=== PATIENT | female | born 1975 | race Caucasian/White ===

== ENCOUNTER → 2023-08-16 | Outpatient (CLI) | payer OTHER ==
--- NOTE | 2023-08-16 13:56 | P.SLEEP ---
History of Present Illness H&P Date: 08/16/23 This is a very pleasant 47-year-old female patient is coming in for sleep apnea evaluation. The patient has issues with chronic A. fib, paroxysmal, and in same time she has typical features of obstructive sleep apnea. The patient has loud snoring, witnessed apneas, sleep fragmentation, excessive fatigue and sleepiness during the day and she wakes up choking and gasping for air. She grinds her teeth, and she described her sleep to be quite restless. She wakes up tired and chest trouble paying attention and she falls asleep during the day easily. She has pounds with memory and concentration. She goes to bed at around 8 PM and she wakes up at 8 AM in the morning and despite spending more than 11 or 12 hours at bed, the patient feels somnolent and sleepy. A Herbster score is at 21. She is coming in for sleep apnea evaluation. No recent weight gain. However, she has gained weight over the past 5 years in the order of 30 pounds. She wakes up at least 4-5 times the middle of the night or choking and gasping. No sleep paralysis. No hallucinations. No cataplexy. She has had difficulties with her driving because of feeling drowsy and sleepy. She has not been involved in a motor vehicle accident. No history of coronary artery disease. Review of Systems Constitutional: Reports daytime sleepiness, Reports fatigue, Reports weight gain Eyes: denies as per HPI, denies blurred vision, denies bulging eye, denies d ecreased vision, denies diplopia, denies discharge, denies dry eye, denies irritation, denies itching, denies pain, denies photophobia, denies loss of peripheral vision, denies loss of vision, denies tunnel vision/blind spots Ears: deny: decreased hearing, ear discharge, earache, tinnitus Ears, nose, mouth and throat: Reports as per HPI Breasts: absent: as per HPI, change in shape, gynecomastia, masses, nipple discharge, pain, skin changes, swelling Cardiovascular: Reports as per HPI Respiratory: Reports snoring Gastrointestinal: Reports as per HPI Genitourinary: Reports as per HPI Menstruation: Reports as per HPI Musculoskeletal: Reports as per HPI Musculoskeletal: absent: ankle pain, ankle stiffness, ankle swelling, as per HPI, elbow pain, elbow stiffness, elbow swelling, foot pain, foot stiffness, foot swelling, hand pain, hand stiffness, hand swelling, hip pain, hip stiffness, hip swelling, knee pain, knee stiffness, knee swelling, shoulder pain, shoulder stiffness, shoulder swelling, wrist pain, wrist stiffness, wrist swelling Integumentary: Reports as per HPI Neurological: Reports as per HPI Psychiatric: Reports as per HPI Endocrine: Reports as per HPI, Reports fatigue Hematologic/Lymphatic: Reports as per HPI Allergic/Immunologic: Reports as per HPI Past Medical History Past Medical History: Atrial Fibrillation Additional Past Medical History / Comment(s): History of colitis, paroxysmal atrial fibrillation, acid reflux, constipation, history of diverticulosis, chronic anxiety Past Surgical History: Appendectomy, Cholecystectomy, Hernia Repair Additional Past Surgical History / Comment(s): Colonoscopy and polyp removal, bladder sling surgery Medications and Allergies Home Medications and Allergies Comment(s): ALLERGIES are to codeine Outpatient medication includes Xarelto 20 mg by mouth daily, she is currently completing a course of antibiotics with Flagyl 500 mg 3 times a day for symptoms of colitis, metoprolol 25 mg twice a day, Cymbalta 60 mg by mouth daily, she also takes a PPI for acid reflux. Physical Exam BP is 100/67, pulse is 88, respirations 18, temperature 98.3, pulse ox is 95% on room air oxygen, Herbster score is at 21, size of the neck is 18-3/4 of an inch, BMI 33.6 Gen. appearance the patient is calm and comfortable, not acute distress. Head exam was generally normal. There was no scleral icterus or corneal arcus. Mucous membranes were moist. Neck was supple and without jugular venous distension, thyromegaly, or carotid bruits. Carotids were easily palpable bilaterally. There was no adenopathy. The patient is a Mallampati class I. No significant crowding of the posterior pharynx. She has micrognathia and a thick neck. Lungs were clear to auscultation and percussion, and with normal diaphragmatic excursion. No wheezes or rales were noted. Cardiac exam revealed the PMI to be normally situated and sized. The rhythm was regular and no extrasystoles were noted during several minutes of auscultation. The first and second heart sounds were normal and physiologic splitting of the second heart sound was noted. There were no murmurs, rubs, clicks, or gallops. Abdominal exam revealed normal bowel sounds. The abdomen was soft, non-tender, and without masses, organomegaly, or appreciable enlargement of the abdominal aorta. Examination of the extremities revealed easily palpable radial, femoral and pedal pulses. There was no cyanosis, clubbing or edema. Examination of the skin revealed no evidence of significant rashes, suspicious appearing nevi or other concerning lesions. Neurologically, the patient is awake and alert and the patient does not have any focal neurological deficit. Cranial nerves are essentially intact. Assessment and Plan Plan: Chronic hypersomnia with an Herbster score of 21. High clinical suspicion for obstructive sleep apnea based above-mentioned symptoms of snoring, witnessed apneas and sleep fragmentation. Patient has micrognathia. Nevertheless, the patient is a Mallampati class I. Obesity with a BMI 33.6 Loud snoring Paroxysmal A. fib, current rhythm is sinus Chronic fatigue and sleepiness Chronic anxiety History of diverticulitis, currently being treated. The patient has diverticulosis also. Acid reflux Chronic anxiety Plan Proceed with the polysomnography Encourage weight loss Avoid driving especially when feeling drowsy or sleepy to avoid any form of motor vehicle accident can be potentially life-threatening Maintain good sleep hygiene measures No substance abuse We'll continue to follow Current cardiac rhythm is sinus Sleep Note - Sleep Note Sleep Note: Temperature: Pulse Rate: Respiratory Rate: Blood Pressure: SpO2: Height: Weight: BMI: Neck Circumference:
== END ==
LOC: 3 N SLEEP 13:09
PROVIDERS: ATTEND Internal Medicine Critical Care Medicine
DX: G47.10 Hypersomnia, unspecified (principal); R06.83 Snoring; M26.09 Other specified anomalies of jaw size; E66.9 Obesity, unspecified; I48.0 Paroxysmal atrial fibrillation; F41.9 Anxiety disorder, unspecified; K21.9 Gastro-esophageal reflux disease without esophagitis; K57.90 Diverticulosis of intestine, part unspecified, without perforation or abscess without bleeding; R53.82 Chronic fatigue, unspecified; Z87.19 Personal history of other diseases of the digestive system; Z68.33 Body mass index [BMI] 33.0-33.9, adult; Z88.5 Allergy status to narcotic agent; Z79.01 Long term (current) use of anticoagulants
CPT/HCPCS: 99202

== ENCOUNTER 2023-09-18 19:16 | Outpatient (CLI) | payer OTHER ==
--- NOTE | 2023-09-28 04:56 | SLS ---
SLEEP STUDY STUDY PERFORMED: Polysomnography report. HISTORY OF PRESENT ILLNESS: This is a 47-year-old female patient with chronic hypersomnia, obesity, loud snoring, chronic fatigue and sleepiness, and [place] score of 21. She does have micrognathia, Mallampati class 4 and she carries a body mass index of 33.6. She has history of paroxysmal atrial fibrillation. Weight is 196, height is 5 feet 4 inches, BMI is 33.6. TECHNICAL DESCRIPTION: The sleep evaluation of the patient consisted of clinical polysomnography, nocturnal respiratory battery, left and right anterior tibialis surface electromyography. The standard montage for the clinical polysomnography included the EEG, EOG, EMG, and EKG. Respiratory battery included measurements of nasal/buccal airflow, thoracic, and/or abdominal effort and intercostal surface EMG. Nocturnal oxyhemoglobin saturations were obtained by finger oximetry. Digital video and audio monitoring were done throughout the entire night to check or parasomnias. RESULTS: SLEEP ARCHITECTURE: The total recording duration was 472 minutes. Total sleep time was 435 minutes. The latency to sleep onset was 18.5 minutes. Latency to REM sleep was 305.5 minutes. The sleep architecture was characterized by 39.9% stage I, 54.6% stage II, 0% stage III, and 5.5% REM sleep. The wake after sleep onset time was 17.5 minutes. The total arousal index was 67.4. RESPIRATORY ANALYSIS: The patient had a total of 692 obstructive events of which 96 were obstructive apneas, 5 were mixed apneas, 591 were obstructive hypopneas, and the patient had an AHI of 93.2. No central apneas were noted. At the same time, the patient encountered significant nocturnal oxygen desaturation that was worse during REM sleep. The patient had a baseline pulse ox of 94% while awake. Her lowest pulse ox during REM sleep at 72% and the patient spent approximately 58 minutes of sleep time at a pulse ox of below 89%. SLEEP CONTINUITY SUMMARY: The patient had a total of 489 arousals with an index of 67.4. Respiratory arousal index was 48.1. Periodic limb movements are none. CARDIAC SUMMARY: Average heart rate was 73, minimum heart rate was 65, maximum heart rate was 85. IMPRESSION: 1. Severe symptomatic obstructive sleep apnea with an AHI of 93.2. 2. Nocturnal oxygen desaturation secondary to obstructive sleep apnea with a minimum pulse ox of 72%. 3. Abnormal sleep architecture with over representation of stage 1 and stage 2 sleep and diminished delta wave and REM. 4. Sleep fragmentation with a total arousal index ray of at 67.4. 5. Chronic hypersomnia with an [place] score of 21. 6. Obesity with a BMI of 33.6. 7. History of paroxysmal atrial fibrillation. 8. Chronic anxiety. 9. Chronic fatigue. 10.Acid reflux and history of diverticulosis. PLAN: Proceed with an in-lab CPAP titration regarding severe symptomatic obstructive sleep apnea. MMODL / IJN: [id number] /
== END 2023-09-19 05:30 | disposition home or self-care (01) ==
LOC: 3 N SLEEP 19:16
PROVIDERS: ATTEND Internal Medicine Critical Care Medicine
DX: G47.33 Obstructive sleep apnea (adult) (pediatric) (principal); G47.36 Sleep related hypoventilation in conditions classified elsewhere; G47.8 Other sleep disorders; G47.52 REM sleep behavior disorder; E66.9 Obesity, unspecified; I48.0 Paroxysmal atrial fibrillation; F41.9 Anxiety disorder, unspecified; R53.82 Chronic fatigue, unspecified; K21.9 Gastro-esophageal reflux disease without esophagitis; Z87.19 Personal history of other diseases of the digestive system; Z68.33 Body mass index [BMI] 33.0-33.9, adult
CPT/HCPCS: 95810

== ENCOUNTER 2023-10-05 19:17 | Outpatient (CLI) | payer OTHER ==
--- NOTE | 2023-10-19 02:01 | SLS ---
SLEEP STUDY This is a CPAP titration report. HISTORY OF PRESENT ILLNESS: A 47-year-old female patient with chronic hypersomnia with an [place] score of 21. The patient underwent a screening polysomnography and she was found to have severe CATIE with an AHI of 93.2 with abnormal sleep architecture, significant nocturnal oxygen desaturation, and sleep fragmentation. Based on that, she is coming in for a CPAP titration study. PERTINENT PHYSICAL FINDINGS: Height is 5 feet 4 inches, weight is 196 with a BMI of 33.6. TECHNICAL DESCRIPTION: The sleep evaluation of the patient consisted of clinical polysomnography, nocturnal respiratory battery, left and right anterior tibialis surface electromyography. The standard montage for the clinical polysomnography included the EEG, EOG, EMG, and EKG. Respiratory battery included measurements of nasal/buccal airflow, thoracic, and/or abdominal effort and intercostal surface EMG. Nocturnal oxyhemoglobin saturations were obtained by finger oximetry. Digital video and audio monitoring were done throughout the entire night to check or parasomnias. Step-navas titration with positive airway pressure was utilized during the study to control the respiratory events. SLEEP ARCHITECTURE: The total recording time was 432 minutes. The total sleep time was 364.0 minutes and the wake after sleep onset time was 48.5 minutes. Overall sleep efficiency was 84.3%. Latency to sleep onset was 19.5 minutes. Latency to REM sleep was 90 minutes and the sleep architecture was characterized by 7% stage I, 63.6% stage II, 3.7% stage III, and 25.7% REM sleep. SLEEP CONTINUITY SUMMARY: The patient had a total of 32 arousals with an index of 5.3. The respiratory arousal index was 0.3. Periodic limb movement activity were none. CARDIAC SUMMARY: Average heart rate was 68, minimum heart rate was 63, and maximum heart rate was 73. CPAP TITRATION STUDY: The patient was started on CPAP therapy initially at a pressure of 5 cm of water and pressure was gradually increased by increments of 1 cm to reach a maximum pressure of 16 cm of water. Careful review of CPAP titration was done taking into account the patient's sleep stage and body position. Note that the patient was sleeping on the right side throughout the titration and she did encounter REM and non-REM sleep. There was obvious improvement in the obstructive respiratory events at various CPAP pressures, especially at pressures of 10 and above. The maximum pressure utilized was 16 cm of water. No significant nocturnal oxygen desaturation encountered during the titration and oxygenation improved. No emergence of any central apnea events. ASSESSMENT: 1. Severe symptomatic obstructive sleep apnea with an AHI of 93.2. The patient underwent a successful CPAP titration. 2. Chronic hypersomnia with an [place] score of 21. 3. Nocturnal oxygen desaturation, improved with CPAP therapy. 4. Obesity with a BMI of 33. 5. Paroxysmal atrial fibrillation. 6. Chronic fatigue. 7. Chronic anxiety. 8. History of diverticulosis/acid reflux. PLAN: Initiate CPAP therapy. The patient will be offered an APAP machine and this will be set at a minimum pressure of 10 and a maximum pressure of 16. The patient is going to be offered an AirFit F20 medium size fullface mask. Will be encouraged to lose weight. We will maintain good sleep hygiene measures. We will regulate sleep schedule. The patient will see me back in the office in 30 to 90 days for a compliancy check and we will make further recommendations. I anticipate improvement in her symptoms of chronic hypersomnia while being on CPAP therapy. We will continue to follow. MMODL / IJN: [id number] /
== END 2023-10-06 05:45 | disposition home or self-care (01) ==
LOC: 3 N SLEEP 19:17
PROVIDERS: ATTEND Internal Medicine Critical Care Medicine
DX: G47.33 Obstructive sleep apnea (adult) (pediatric) (principal); G47.10 Hypersomnia, unspecified; G47.36 Sleep related hypoventilation in conditions classified elsewhere; E66.9 Obesity, unspecified; I48.0 Paroxysmal atrial fibrillation; F41.9 Anxiety disorder, unspecified; R53.82 Chronic fatigue, unspecified; K21.9 Gastro-esophageal reflux disease without esophagitis; Z87.19 Personal history of other diseases of the digestive system; Z68.33 Body mass index [BMI] 33.0-33.9, adult
CPT/HCPCS: 95811